=== PATIENT | male | born 1980 | race African-American/Black ===

== ENCOUNTER 2020-05-07 06:53 | Emergency (ER) | payer OTHER ==
[~2020-05-07] VITALS: Ht 188 cm; Wt 106.6 kg
[2020-05-07 07:23] LABS: HEMATOCRIT 46.4 % (42.0-52.0); HEMOGLOBIN 15.4 gm/dL (14.0-18.0); MCH 29.2 pg (26.0-34.0); MCHC 33.2 g/dL (28.0-37.0); RBC 5.28 mil/uL (4.50-6.00); RDW 13.5 % (10.5-14.5)
[2020-05-07 07:30] LABS: ANION GAP 9 mmol/L (7-16); BUN 13 mg/dL (7-18); CALCIUM 8.9 mg/dL (8.5-10.1); CHLORIDE 103 mmol/L (98-107); CO2 28 mmol/L (21-32); CREATININE 1.4 mg/dL (0.7-1.3); GLUCOSE 148 mg/dL (74-106); POTASSIUM 3.9 mmol/L (3.5-5.1); SODIUM 140 mmol/L (136-145)
[2020-05-07 07:40] LABS: ALBUMIN 3.7 g/dL (3.4-5.0); LIPASE 121 U/L (73-393); SGOT 23 U/L (15-37); SGPT 42 U/L (16-63); TOTAL BILIRUBIN 0.3 mg/dL (0.2-1.0); TOTAL PROTEIN 7.3 g/dL (6.4-8.2); TROPONIN-I <0.06 ng/mL (<0.06)
[2020-05-07 08:54] VITALS: BP 147/81
--- NOTE | 2020-05-07 16:21 | EKG ---
[address] [place] [address] ELECTROCARDIOGRAM REPORT Name: AMANDA SKAGGS Room #: DEP ANTONIO Vallecillo#: [id number] Admission: 05/07/20 Attend Phys: Discharge: 05/07/20 Date of : 80 Report #: [id number] [facility] Test Date: 2020-05-07 Test Time: 07:04:39 Pat Name: AMANDA SKAGGS Department: Room: Gender: [employer]: MENDOZA : 1980 Requested By: Brennan Ravi Order Number: [id number] MD: Jacob Drake Measurements Intervals [place] Rate: 73 P: 52 [place]: 152 QRS: 42 QRSD: 78 T: 16 QT: 364 QTc: 401 Interpretive Statements Sinus rhythm Early repolarization No previous ECG available for comparison Electronically Signed On 05-07-2020 16:21:32 CDT by Jacob Drake [email or web address] <ELECTRONICALLY SIGNED> By: Jacob Drake MD, MERGED WITH [facility] 05/07/20 1621 [id number] Jacob Drake MD, FACC /EPI
== END 2020-05-07 08:55 | disposition home or self-care (01) ==
LOC: ER 06:53
PROVIDERS: Emergency Medicine
DX: I31.9 Disease of pericardium, unspecified (principal); R73.9 Hyperglycemia, unspecified; F17.290 Nicotine dependence, other tobacco product, uncomplicated